=== PATIENT | male | born 1995 | race Caucasian/White ===

== ENCOUNTER 2016-07-24 15:09 | Emergency (ER) ==
[2016-07-24] MEDS ORDERED: ALBUTEROL NEB ONE (15:18)
[2016-07-24] MEDS ORDERED: DECADRON ONE (15:18)
[2016-07-24] MEDS ORDERED: SOLU-MEDROL ONE (15:20)
[2016-07-24] MEDS ORDERED: MAGNESIUM SULFATE 2 GM/S.W.I. 50 ML ONE (15:20)
[2016-07-24] MEDS ORDERED: MAGNESIUM SULFATE 2 GM/S.W.I. 50 ML IV ONE (15:21)
[2016-07-24] MEDS ORDERED: ATROVENT NEB INH ONE (15:21)
[2016-07-24] MEDS ORDERED: ALBUTEROL NEB INH ONE (15:21)
[2016-07-24] MEDS ORDERED: DECADRON MISC ONE (15:21)
[2016-07-24] MEDS ORDERED: SOLU-MEDROL IV ONE (15:21)
--- NOTE | 2016-07-24 15:26 | PROVIDER DOCUMENTATION ---
Addendum entered and electronically signed by Araseli Escobedo Scribe 07/24/16 17:48: Additional Progress - ADDITIONAL PLAN OF CARE/RESULTS Additional Progress/Plan/Lab Results: Vital Signs - 24 hr 07/24/16 07/24/16 07/24/16 15:11 15:29 15:51 Temperature 98 F Pulse Rate 110 H 97 H 91 H Respiratory 40 H 26 H 24 Rate Blood Pressure 117/75 O2 Sat by Pulse 91 L 99 Oximetry 07/24/16 07/24/16 16:16 17:16 Temperature Pulse Rate 84 98 H Respiratory 20 20 Rate Blood Pressure 116/63 100/66 O2 Sat by Pulse 98 94 L Oximetry Orders Category Date Time Status Saline Loc NOW Care 07/24/16 15:21 Active CHEST-PORTABLE [RAD] Stat Exams 07/24/16 15:21 Completed ABG [RESP] Routine Lab 07/24/16 17:45 Ordered BASIC METABOLIC PANEL [CHEM] Stat Lab 07/24/16 15:25 Completed CBC WITH DIFF [HEME] Stat Lab 07/24/16 15:25 Completed Albuterol Neb Med 07/24/16 15:21 Discontinued 10 mg INH NOW ONE Albuterol [Albuterol Neb] Med 07/24/16 15:18 Discontinued 10 mg .ROUTE .STK-MED ONE Dexamethasone [Decadron] Med 07/24/16 15:18 Discontinued 4 mg .ROUTE .STK-MED ONE Dexamethasone [Decadron] Med 07/24/16 15:21 Discontinued 4 mg MISC NOW ONE Ipratropium [place] Neb [Atrovent Neb] Med 07/24/16 15:21 Discontinued 0.5 mg INH NOW ONE Magnesium Sulfate 2 gm/S.w.i. [Magnesium Sulfate 2 gm/S Med 07/24/16 15:20 Discontinued .w.i] 50 ml .ROUTE As Directed Magnesium Sulfate 2 gm/S.w.i. [Magnesium Sulfate 2 gm/S Med 07/24/16 15:21 Discontinued .w.i] 50 ml IV NOW Methylprednisolone Sod Succ [Solu-Medrol] Med 07/24/16 15:20 Discontinued 125 mg .ROUTE .STK-MED ONE Methylprednisolone Sod Succ [Solu-Medrol] Med 07/24/16 15:21 Discontinued 125 mg IV NOW ONE Aerosol Treatments Routine Oth 07/24/16 15:22 Completed Aerosol Treatments Stat Oth 07/24/16 15:22 Completed Laboratory Tests 07/24/16 07/24/16 15:25 15:25 WBC 7.66 RBC 5.64 Hgb 16.8 Hct 47.0 MCV 83.3 MCH 29.8 MCHC 35.7 RDW Std Deviation 12.7 Plt Count 241 MPV 11.4 H Immature Gran % (Auto) 0.1 Neut % (Auto) 39.9 L Lymph % (Auto) 41.0 [place] % (Auto) 13.2 H Eos % (Auto) 5.4 Baso % (Auto) 0.4 Immature Gran # (Auto) 0.01 Neut # (Auto) 3.06 Lymph # (Auto) 3.14 [place] # (Auto) 1.01 H Eos # (Auto) 0.41 Baso # (Auto) 0.03 Sodium 139 Potassium 3.9 Chloride 103 Carbon Dioxide 25 Anion Gap 11 BUN 11 Creatinine 0.8 Estimated GFR/1.73 m2 > 60 BUN/Creatinine Ratio 14 Glucose 89 Calculated Osmolality 276 Calcium 9.7 - ADDITIONAL REASSESSMENT Time Reassessed: 16:45 Status: worsening (Pt's O2 sats on room air went down to 91, so ABG and additional monitoring is needed before discharge.) Original Note: HPI-Respiratory General - General Source: patient - History of Present Illness-Resp Severity in ED: reports: moderate, severe Onset/Duration: reports: abrupt, other (began yesterday, worsened today) Timing: reports: still present Context: reports: out of meds Cough Quality/Degree: reports: moderate, severe, dry cough Episode Frequency: frequent episodes Current Respiratory Medication Therapy: Initiated A/A nebulizer, Initiated albuterol Modifying Factors: improves with: albuterol nebulizer. worse with: coughing Associated Symptoms: reports: heart racing, hyperventilating, shortness of breath, wheezing Similar Symptoms Previously?: Yes (hx asthma) <Araseli Escobedo - Last Filed: 07/24/16 16:46> <Ad Marie - Last Filed: 07/24/16 17:24> - General Chief Complaint: Asthma Attack Stated Complaint: SOB Time Seen by Provider: 07/24/16 15:16 Allergies/Adverse Reactions: Patient Allergies Allergy/AdvReac Type Severity Reaction Status Date / Time No Known Allergies Allergy Verified 07/07/16 16:49 Home Medications: Home Medication List Medication Instructions Recorded Confirmed Last Taken Type Albuterol [Albuterol Neb] 2.5 mg INH Q4H PRN PRN #20 neb 07/07/16 Unknown Rx Prednisone 20 mg PO DAILY #12 tablet 07/07/16 Unknown Rx Albuterol Sulfate Inhaler 2 puff INH Q4H PRN PRN #1 inhaler 07/24/16 Unknown Rx [Ventolin Hfa] Albuterol [Albuterol Neb] 2.5 mg INH Q4H PRN PRN #30 neb 07/24/16 Unknown Rx Ipratropium [place] Neb [Atrovent 0.5 mg INH RTQ4H PRN #30 neb 07/24/16 Unknown Rx Neb] Methylprednisolone [Medrol Dosepak] 4 mg PO DIRECTED #1 package 07/24/16 Unknown Rx - History of Present Illness-Resp Nature of Presenting Problem: 21 yo WM presents to ED with cc of acute asthma attack. Pt reports history of severe asthma, treated with albuterol. Pt has some difficulty talking due to respiratory distress, but he is alert and oriented x 3, and he is able to give short answers. Pt denies any other medical hx. Pt denies any toxic habits. Upon arrival to ED, pt is moderately distressed. (Araseli Escobedo) Review of Systems - Adult - REVIEW OF SYSTEMS - ADULT ROS:: limited per condition (Pt had difficulty talking due to respiratory distress but was alert and oriented and able to answer with short answers) Constitutional: reports: no symptoms reported. denies: chills, fever Eyes: reports: no symptoms reported. denies: blurred vision, double vision Ears, Nose, Mouth & Throat: reports: no symptoms reported. denies: ear pain, sinus problem Cardiovascular: reports: no symptoms reported. denies: edema, heart murmur Respiratory: reports: shortness of breath, wheezing, other (accute asthma attack , severe) Gastrointestinal: reports: no symptoms reported. denies: frequent heartburn, nausea Genitourinary: reports: no symptoms reported. denies: dysuria, flank pain Musculoskeletal: reports: no symptoms reported. denies: bone pain, joint pain Integumentary: reports: no symptoms reported. denies: hives, itching Neurological: reports: no symptoms reported. denies: dizziness/vertigo, paresthesia Psychiatric: reports: no symptoms reported. denies: alcohol/drug dependence, panic attacks Endocrine: reports: no symptoms reported. denies: cold intolerance, heat intolerance Hematologic/Lymphatic: reports: no symptoms reported. denies: blood clots, low blood count Allergic/Immunologic: reports: no symptoms reported. denies: allergic reactions , allergic rhinitis All Other Systems: Reviewed and Negative <Araseli Escobedo - Last Filed: 07/24/16 16:46> Past History - Adult - PAST MEDICAL HISTORY-ADULT Review of Records: reports: Old Records Reviewed, Nursing Assessment Review, Medications Reviewed Respiratory: reports: asthma - PRIOR SURGERIES/PROCEDURES Surgical/Procedure History: reports: reviewed, not pertinent - IMMUNIZATION STATUS Childhood Immunizations: See Nurse Assessment Flu Vaccine: See Nurse Assessment - FAMILY HISTORY Family History: reviewed, not pertinent <Araseli Escobedo - Last Filed: 07/24/16 16:46> Physical Exam-General - PHYSICAL EXAM-ADULT Initial Vital Signs Reviewed: Yes - CONSTITUTIONAL General Appearance: alert, moderate distress - EYES Eyes: PERRL/EOMI, pink conjunctivae - HEAD, EARS, NOSE, MOUTH & THROAT HENMT: normocephalic/atraumatic, moist mucous membranes - NECK Neck: full range of motion, supple - RESPIRATORY Respiratory: respiratory distress, wheezing, increased rate - CARDIOVASCULAR Cardiovascular: tachycardia - GASTROINTESTINAL (ABDOMEN) Abdominal Exam: non tender, soft - LYMPHATIC Lymphatic: no adenopathy - MUSCULOSKELETAL Back Exam: normal inspection, no vertebral tenderness Extremity: normal range of motion, non-tender, normal gait - SKIN Integumentary: normal color, normal turgor, warm/dry - NEUROLOGIC Neurologic: grossly normal, no motor/sensory deficits - PSYCHIATRIC Psych/Mental Status: normal mood/affect, normal thought content, normal thought process, oriented x 3 <Araseli Escobedo - Last Filed: 07/24/16 16:46> Progress - REASSESSMENT Reassessment #1 Time Reassessed: 16:00 Status: improving Reassessment Comment: Pt sleeping but rousable. Respiratory distress resolved, bilateral wheeze Reassessment #2 Time Reassessed: 16:40 Status: improving Reassessment Comment: Pt wheezing resolved - XRAY 1 XRAY Study: Chest Impression: Normal XRAY Interpretation: NAD <Araseli Escobedo - Last Filed: 07/24/16 16:46> <Ad Marie - Last Filed: 07/24/16 17:24> - PLAN OF CARE/RESULTS Progress/Plan/Lab Results: Laboratory Results - last 24 hr 07/24/16 07/24/16 15:25 15:25 WBC 7.66 RBC 5.64 Hgb 16.8 Hct 47.0 MCV 83.3 MCH 29.8 MCHC 35.7 RDW Std Deviation 12.7 Plt Count 241 MPV 11.4 H Immature Gran % (Auto) 0.1 Neut % (Auto) 39.9 L Lymph % (Auto) 41.0 [place] % (Auto) 13.2 H Eos % (Auto) 5.4 Baso % (Auto) 0.4 Immature Gran # (Auto) 0.01 Neut # (Auto) 3.06 Lymph # (Auto) 3.14 [place] # (Auto) 1.01 H Eos # (Auto) 0.41 Baso # (Auto) 0.03 Sodium 139 Potassium 3.9 Chloride 103 Carbon Dioxide 25 Anion Gap 11 BUN 11 Creatinine 0.8 Estimated GFR/1.73 m2 > 60 BUN/Creatinine Ratio 14 Glucose 89 Calculated Osmolality 276 Calcium 9.7 Vital Signs Temp Pulse Resp BP Pulse Ox 07/24/16 17:16 98 H 20 100/66 94 L 07/24/16 16:16 84 20 116/63 98 07/24/16 15:51 91 H 24 117/75 99 07/24/16 15:29 97 H 26 H 07/24/16 15:11 98 F 110 H 40 H 91 L No Known Allergies Allergy (Verified 07/07/16 16:49) Albuterol [Albuterol Neb] 2.5 mg INH Q4H PRN PRN #20 neb 07/07/16 Prednisone 20 mg PO DAILY #12 tablet 07/07/16 Albuterol Sulfate Inhaler [Ventolin Hfa] 2 puff INH Q4H PRN PRN #1 inhaler 07/24 Albuterol [Albuterol Neb] 2.5 mg INH Q4H PRN PRN #30 neb 07/24/16 Ipratropium [place] Neb [Atrovent Neb] 0.5 mg INH RTQ4H PRN #30 neb 07/24/16 Methylprednisolone [Medrol Dosepak] 4 mg PO DIRECTED #1 package 07/24/16 Laboratory 07/24/16 07/24/16 15:25 15:25 WBC 7.66 RBC 5.64 Hgb 16.8 Hct 47.0 MCV 83.3 MCH 29.8 MCHC 35.7 RDW Std Deviation 12.7 Plt Count 241 MPV 11.4 H Immature Gran % (Auto) 0.1 Neut % (Auto) 39.9 L Lymph % (Auto) 41.0 [place] % (Auto) 13.2 H Eos % (Auto) 5.4 Baso % (Auto) 0.4 Immature Gran # (Auto) 0.01 Neut # (Auto) 3.06 Lymph # (Auto) 3.14 [place] # (Auto) 1.01 H Eos # (Auto) 0.41 Baso # (Auto) 0.03 Sodium 139 Potassium 3.9 Chloride 103 Carbon Dioxide 25 Anion Gap 11 BUN 11 Creatinine 0.8 Estimated GFR/1.73 m2 > 60 BUN/Creatinine Ratio 14 Glucose 89 Calculated Osmolality 276 Calcium 9.7 Orders Category Date Time Status Saline Loc NOW Care 07/24/16 15:21 Active CHEST-PORTABLE [RAD] Stat Exams 07/24/16 15:21 Completed BASIC METABOLIC PANEL [CHEM] Stat Lab 07/24/16 15:25 Completed CBC WITH DIFF [HEME] Stat Lab 07/24/16 15:25 Completed Albuterol Neb Med 07/24/16 15:21 Discontinued 10 mg INH NOW ONE Albuterol [Albuterol Neb] Med 07/24/16 15:18 Discontinued 10 mg .ROUTE .STK-MED ONE Dexamethasone [Decadron] Med 07/24/16 15:18 Discontinued 4 mg .ROUTE .STK-MED ONE Dexamethasone [Decadron] Med 07/24/16 15:21 Discontinued 4 mg MISC NOW ONE Ipratropium [place] Neb [Atrovent Neb] Med 07/24/16 15:21 Discontinued 0.5 mg INH NOW ONE Magnesium Sulfate 2 gm/S.w.i. [Magnesium Sulfate 2 gm/S Med 07/24/16 15:20 Discontinued .w.i] 50 ml .ROUTE As Directed Magnesium Sulfate 2 gm/S.w.i. [Magnesium Sulfate 2 gm/S Med 07/24/16 15:21 Discontinued .w.i] 50 ml IV NOW Methylprednisolone Sod Succ [Solu-Medrol] Med 07/24/16 15:20 Discontinued 125 mg .ROUTE .STK-MED ONE Methylprednisolone Sod Succ [Solu-Medrol] Med 07/24/16 15:21 Discontinued 125 mg IV NOW ONE Aerosol Treatments Routine Oth 07/24/16 15:22 Completed Aerosol Treatments Stat Oth 07/24/16 15:22 Completed (Ad Marie) Departure <Araseli Escobedo - Last Filed: 07/24/16 16:46> - Departure Time of Disposition Order: 17:23 Certified Medical Emergency: Emergent <Ad Marie - Last Filed: 07/24/16 17:24> - Departure DIAGNOSIS: Asthma exacerbation Disposition: HOME 01 Condition: Stable Additional Instructions: Follow up with regular MD in 2-3 days. Return to ER if your symptoms worsen. Prescriptions: Albuterol [Albuterol Neb] 2.5 mg INH Q4H PRN PRN #30 neb PRN Reason: Wheezing Ipratropium [place] Neb [Atrovent Neb] 0.5 mg INH RTQ4H PRN #30 neb PRN Reason: Wheezing Methylprednisolone [Medrol Dosepak] 4 mg PO DIRECTED #1 package Albuterol Sulfate Inhaler [Ventolin Hfa] 2 puff INH Q4H PRN PRN #1 inhaler PRN Reason: Wheezing Referrals: None,PCP [Primary Care Provider] - Attestation - Scribe Verification/Attestation Scribe:: Araseli Escobedo Acting as Scribe for:: Ad Marie Scribe documention review:: This chart was documented by a scribe and accurately reflects the service the provider performed and the decisions made by the provider. - Physician/ OLLIE Attestation Patient care was provided by Advanced Practice Provider:: No <Araseli Escobedo - Last Filed: 07/24/16 16:46> Physician Attestation
[2016-07-24 15:33] LABS: MANUAL DIFF NEEDED? NO
[2016-07-24 15:36] LABS: BASO% 0.4 % (0.0-0.8); EOS# 0.41 X1000 (0.0-0.7); EOS% 5.4 % (0.0-10.0); HEMOGLOBIN 16.8 g/dL (14.0-18.0); IMM GRAN# 0.01 X1000 (0.0-0.04); IMM GRAN% 0.1 % (0.0-0.5); LYMPH# 3.14 X1000 (1.2-3.4); MCH 29.8 PG (27-31); MCHC 35.7 g/dL (33-37); MCV 83.3 FL (81-99); MONO# 1.01 X1000 (0.11-0.59); MONO% 13.2 % (1.7-9.3); MPV 11.4 FL (7.4-10.4); NEUT% 39.9 % (42.2-75.2); PLT 241 X1000 (130-400); RBC 5.64 XMIL (4.7-6.1)
[2016-07-24 15:57] LABS: AGAP 11; BUN 11 mg/dL (8-22); CALCIUM 9.7 mg/dL (8.8-10.2); CHLORIDE 103 mmol/L (98-107); COSMO 276; POTASSIUM 3.9 mmol/L (3.5-5.1); SODIUM 139 mmol/L (136-145); TCO2 25 mmol/L (25-35)
--- NOTE | 2016-07-24 16:12 | Diag Imaging Result Document ---
PROCEDURE NAME: CHEST-PORTABLE - 07/24/2016 PORTABLE CHEST X-RAY: COMPARISON: 07/07/2016. FINDINGS: There are stable scattered calcified granulomas bilaterally mostly in the upper lobes. No focal infiltrates, pneumothorax, or pleural effusion. Heart size is normal. IMPRESSION: No acute disease or change from prior.
[2016-07-24 18:37] VITALS: BP 104/86
== END 2016-07-24 18:45 | disposition home or self-care (01) ==
LOC: P.ED 15:09
DX: J45.901 Unspecified asthma with (acute) exacerbation (principal); R06.02 Shortness of breath; R06.2 Wheezing; R06.4 Hyperventilation; R00.0 Tachycardia, unspecified
CPT/HCPCS: 71010; 80048; 85025; 94640; 96365; 96375; J1100; J2930; J3475

== ENCOUNTER 2019-01-22 20:17 | Observation (INO) ==
[2019-01-22] MEDS ORDERED: XYLOCAINE-MPF 1% INJ ONE (20:51)
--- NOTE | 2019-01-22 20:56 | PROVIDER DOCUMENTATION ---
HPI-Rash/Wound/ReCheck - General Chief Complaint: Abscess Stated Complaint: CELLULITIS (R) ARM Time Seen by Provider: 01/22/19 20:40 Source: patient Allergies/Adverse Reactions: Allergies Allergy/AdvReac Type Severity Reaction Status Date / Time No Known Allergies Allergy Verified 01/22/19 20:35 Home Medications: Home Medication List Medication Instructions Recorded Confirmed Last Taken Type Montelukast Sodium [Singulair] 10 mg PO DAILY 03/19/17 01/21/18 05/13/17 History Lisdexamfetamine Dimesylate 50 mg PO QAM 01/21/18 01/21/18 Unknown History [Vyvanse] Buprenorphine/Naloxone S.l 1 ea SL DAILY PRN #2 film 01/26/18 Unknown Rx [Suboxone 2 mg/0.5 mg Film] Buprenorphine/Naloxone S.l 1 each SL DAILY film 01/26/18 Unknown Rx [Suboxone 2 mg/0.5 mg Film] - History of Present Illness-Dermatology Nature of Presenting Problem: 23yom present to ER with c/o abscess to R arm. Pt reports IV drug use to [facility] area 1 week ago. Denies fever. Pt went to an urgent care 2 days ago and was put on medrol dose pack, bactrim, and clindamycin. Pt states it continues to get bigger. denies fever. Pt nontoxic. Location: reports: upper extremity (R arm) Quality: reports: painful Onset/Duration: reports: 6 days ago Context/Associated Symptoms: reports: abscess Review of Systems - Adult - REVIEW OF SYSTEMS - ADULT Constitutional: reports: no symptoms reported. denies: chills, fever Eyes: reports: no symptoms reported Ears, Nose, Mouth & Throat: reports: no symptoms reported Cardiovascular: reports: no symptoms reported. denies: chest pain Respiratory: reports: no symptoms reported. denies: shortness of breath Gastrointestinal: reports: no symptoms reported. denies: nausea, vomiting Genitourinary: reports: no symptoms reported Musculoskeletal: reports: see HPI, other (R arm pain, swelling, redness) Integumentary: reports: no symptoms reported Neurological: reports: no symptoms reported Psychiatric: reports: no symptoms reported Endocrine: reports: no symptoms reported Hematologic/Lymphatic: reports: no symptoms reported Allergic/Immunologic: reports: no symptoms reported All Other Systems: Reviewed and Negative Past History - Adult - PAST MEDICAL HISTORY-ADULT Review of Records: reports: Old Records Reviewed, Nursing Assessment Review, Medications Reviewed, Social history reviewed & non-contributory. Major Childhood Illnesses: reports: denies history Cardiovascular: reports: denies history Respiratory: reports: asthma Gastrointestinal: reports: denies history Obstetrical/Gynecological: reports: denies history Genitourinary: reports: denies history Musculoskeletal: reports: denies history Neurological: reports: denies history Psychiatric: reports: denies history Endocrine/Immune: reports: denies history Other Conditions: reports: denies history - PRIOR SURGERIES/PROCEDURES Surgical/Procedure History: reports: reviewed, not pertinent - IMMUNIZATION STATUS Childhood Immunizations: See Nurse Assessment Flu Vaccine: See Nurse Assessment - FAMILY HISTORY Family History: reviewed, not pertinent - SOCIAL HISTORY Smoking: cigarettes Provider spent 3-5 mins advising pt. on dangers of tobacco.: Discussed manners to quit use, and f/u contacts for add'l counseling. Substance Use: amphetamines Physical Exam-General - PHYSICAL EXAM-ADULT Initial Vital Signs Reviewed: Yes - CONSTITUTIONAL General Appearance: alert, no apparent distress - EYES Eyes: pink conjunctivae - HEAD, EARS, NOSE, MOUTH & THROAT HENMT: moist mucous membranes, normal ENT inspection. negative: angioedema - NECK Neck: full range of motion, supple, normal inspection - RESPIRATORY Respiratory: lungs clear, normal breath sounds, no respiratory distress, no accessory muscle use - CARDIOVASCULAR Cardiovascular: normal peripheral pulses, regular rate, rhythm - GASTROINTESTINAL (ABDOMEN) Abdominal Exam: normal bowel sounds, non tender, soft - LYMPHATIC Lymphatic: no adenopathy - MUSCULOSKELETAL Back Exam: normal inspection Extremity: normal range of motion, normal gait, normal capillary refill, erythema (R ACF extending into forearm), swelling (R ACF area extending into forearm), tenderness (R ACF area). negative: deformity, pulse deficit Peripheral Pulses: radial (R): 2+, radial (L): 2+ - SKIN Integumentary: normal color, warm/dry. negative: cyanosis, jaundice - NEUROLOGIC Neurologic: grossly normal - PSYCHIATRIC Psych/Mental Status: normal mood/affect, normal thought content, normal thought process, oriented x 3 Progress - PLAN OF CARE/RESULTS Progress/Plan/Lab Results: Vital Signs - 8 hr 01/22/19 20:33 Temperature 97.9 F Pulse Rate 104 H Respiratory Rate 16 Blood Pressure 118/83 O2 Sat by Pulse Oximetry 99 01/22/19 22:18 Gram Stain - Final Arm - Right Orders Category Date Time Status I and D Set up DIRECTED Care 01/22/19 20:51 Active Saline Loc NOW Care 01/22/19 20:57 Active BLOOD CULTURE [BLDCUL] Stat Lab 01/22/19 23:02 Uncollected CBC WITH DIFF [HEME] Stat Lab 01/22/19 20:57 Uncollected COMPREHENSIVE METABOLIC PANEL [CHEM] Stat Lab 01/22/19 23:02 Uncollected WOUND CULTURE INC GRAM STAIN [RM] Routine Lab 01/22/19 22:18 Results Lidocaine 1% Pf [Xylocaine-Mpf 1%] Med 01/22/19 20:51 Discontinued 10 ml INJ NOW ONE Piperacillin/Tazobactam [Zosyn] 4.5 gm Med 01/22/19 23:36 Active 0.9% Sodium Chloride Inj [Ns] 100 ml IV NOW Vancomycin 1 gm/Ns Med 01/22/19 23:36 Active 1 gm in 250 ml IV NOW - REASSESSMENT Reassessment #1 Time Reassessed: 22:57 (discussed pt with Dr Rivas, suggests pt be admitted due to pt failing outpatient treatment. ) - CONSULTS/PCP/HOSPITALIST Notification #1 *Consult/PCP/Hospitalist*: Dr Rivas spoke with Dr Weaver Time Discussed: 23:49 Consult Disposition: Will see in ED, Admit Procedures - INCISION & DRAINAGE Site: R ACF area Abscess Type: Simple Prepped with: Kit Utilized, Betadine, Sterile Drapes Applied Anesthetic: 1%, Lidocaine/Xylocaine Volume of Anesthetic (ml's): 5 Blade Size: 11 Packing placed?: No Drainage: Large Amount, Purulent (odorous) Departure - Departure Date of Disposition Decision: 01/22/19 Time of Disposition Decision: 22:28 DIAGNOSIS: Abscess, IV drug abuse Disposition: ADMITTED INPATIENT 09 Certified Medical Emergency: Emergent Condition: Stable Referrals and Follow-Ups: None,PCP [Primary Care Provider] - - Critical Care Note This patient required my direct & personal management of CC.: No Attestation - Physician/ OLLIE Attestation Patient care was provided by Advanced Practice Provider:: Yes Advanced Practice Provider:: Connie Weller Advanced Practice Provider documentation review:: The Mid-level provider documentation, treatment plan and medical decision making was reviewed by the physician who agrees with all treatment and medical decision making by the MLP. The physician spent face to face time with patient:: Yes Advanced Practice Provider documentation review:: Supervising physician onsite and consulted in the evaluation and care of this patient. The physician did have a face to face encounter with the patient.
[2019-01-22] MEDS ORDERED: VANCOMYCIN 1 GM/NS 1 GM/250 ML IVPB IV ONE (23:36)
[2019-01-22] MEDS ORDERED: ZOSYN 4.5 GM in NS 100 ML IV ONE (23:36)
[2019-01-23 00:42] LABS: BASO# 0.02 X1000 (0.0-0.2); BASO% 0.2 % (0.0-0.8); EOS# 0.18 X1000 (0.0-0.7); EOS% 1.6 % (0.0-10.0); HEMATOCRIT 42.3 % (42.0-52.0); HEMOGLOBIN 14.4 g/dL (14.0-18.0); LYMPH# 1.53 X1000 (1.2-3.4); LYMPH% 13.5 % (20.5-51.1); MCH 28.6 PG (27-31); MCV 83.9 FL (81-99); MONO# 1.26 X1000 (0.11-0.59); MONO% 11.1 % (1.7-9.3); MPV 12.1 FL (7.4-10.4); NEUT# 8.38 X1000 (1.4-6.5); NEUT% 73.6 % (42.2-75.2); PLT 247 X1000 (130-400); RBC 5.04 XMIL (4.7-6.1); WBC 11.37 X1000 (4.8-10.8)
[2019-01-23 01:16] LABS: AGAP 10; ALB/GLOB RATIO 1.2; ALBUMIN 3.3 g/dL (3.5-5.0); ALKALINE PHOSPHATASE 86 U/L (32-122); BUN 9 mg/dL (8-22); CALCIUM 8.2 mg/dL (8.8-10.2); CHLORIDE 104 mmol/L (98-107); COSMO 268; CREATININE 0.9 mg/dL (0.7-1.2); ESTIMATED GFR > 60; GLUCOSE 92 mg/dL (70-104); GOT 58 U/L (10-34); GPT 69 U/L (10-44); POTASSIUM 3.9 mmol/L (3.5-5.1); SODIUM 135 mmol/L (136-145); TCO2 21 mmol/L (25-35); TOTAL BILIRUBIN 0.43 mg/dL (0.20-1.00)
[2019-01-23] MEDS ORDERED: ZOFRAN IV PRN (02:02)
[2019-01-23] MEDS ORDERED: TYLENOL PO PRN (02:02)
[2019-01-23] MEDS ORDERED: VANCOMYCIN IV PER PHARMACY MISC SCH (02:02)
[2019-01-23] MEDS ORDERED: VANCOMYCIN 1,200 MG in NS 250 ML IV ONE (03:30)
[2019-01-23] MEDS: NS 1,000 ML IV SCH ×2 (03:41→16:23)
[2019-01-23] MEDS: ZOSYN 3.375 GM in NS 50 ML IV SCH ×4 (06:22→23:58)
--- NOTE | 2019-01-23 09:26 | HISTORY AND PHYSICAL ---
CHIEF COMPLAINT: Right arm abscess. HISTORY OF PRESENT ILLNESS: Mr. Dejesus is a 23-year-old male with medical history of asthma and IV drug use. He reportedly this last Thursday took crystal meth, I believe, into his right AC. He missed the vein and injected into the subcutaneous tissue. An abscess began to form. He went to a clinic. He was given antibiotics. It continued to grow in size, so he came to the emergency room. They I and D'd the area and felt that he needed to come in for IV antibiotics. Blood cultures and wound cultures are pending. He will be admitted for further evaluation and treatment. PAST MEDICAL HISTORY: Asthma and IV drug use. PAST SURGICAL HISTORY: Denies. SOCIAL HISTORY: Lives with friends. Rare alcohol. No tobacco. Occasional IV drug use. FAMILY HISTORY: Denies any family history. REVIEW OF SYSTEMS: A 14-point review of systems was conducted with the patient. He has pain in the right AC. He denies any other type of symptoms. All other systems were reviewed and found to be negative. PHYSICAL EXAMINATION: VITAL SIGNS: Temperature 97.8, pulse 85, respirations 18, blood pressure 127/82, oxygen saturation is 100% on room air. GENERAL: A pleasant 23-year-old male lying on the ER stretcher. Answered all questions appropriately. He is alert and oriented x3. HEENT: Head is atraumatic and normocephalic. Pupils are equal, round and reactive to light. Extraocular eye movements intact. Sclerae anicteric. Conjunctivae are pink. Oral mucosa is moist. NECK: Supple. No JVD. No thyromegaly. Trachea is midline. No cervical lymphadenopathy. CARDIAC: S1 and S2 appreciated. No murmurs, gallops or rubs. LUNGS: Expiratory and inspiratory wheezing throughout the lung soler. No rhonchi or rales. Symmetric rise and fall with respirations. ABDOMEN: Soft, nondistended and nontender. Bowel sounds present in all 4 quadrants and normoactive. No pulsatile mass. No organomegaly. EXTREMITIES: No cyanosis, clubbing or edema. INTEGUMENTARY: Right antecubital abscess which has been I and D'd noted with erythema and mild induration around the area. NEUROLOGICAL: Alert and oriented x3. Cranial nerves II through XII grossly intact. GENITOURINARY: No bladder distention. The patient voids. Otherwise deferred. DIAGNOSTIC DATA: WBC is 11.37, hemoglobin 14.4, hematocrit 42.3, platelet count 247. Sodium is 135, potassium 3.9, chloride 104, carbon dioxide 21, BUN is 9, creatinine 0.9, glucose 10, AST is 58, ALT is 69. ASSESSMENT AND PLAN: 1. Right antecubital abscess with cellulitis. We will start on vancomycin and Zosyn. Blood cultures and wound culture are pending. 2. Asthma. We will give DuoNebs. 3. Leukocytosis secondary to number 1. 4. Transaminitis. Recommend followup. This could be transient. 5. IV Drug use. Aware. Further recommendations based on the patient's clinical course. Dictated by JUDIE Adkins for Juan Pablo Weaver MD I have performed a face to face diagnostic evaluation. Labs/ Xrays- reviewed. Exam- chest - clear, Ext- Rt arm abscess. A/P- Rt arm abscess/cellulitis- Admit, IV ABX, wound culture. pain control. Dr. Weaver cc: JUDIE Adkins MD [facility]
--- NOTE | 2019-01-23 13:32 | PROGRESS NOTE ---
DATE: 01/23/2019 SUBJECTIVE: The patient has no primary care physician. He came in with right arm abscess. Mr. Dejesus is 23 year old with medical history of asthma, IV drug use. Reportedly last Thursday, he took crystal meth, I believe into his right AC. He missed the vein and injected it into the subcutaneous tissue. Abscess began to form. He went to the clinic, was given antibiotics. It continued to grow in size. He came to the emergency room. They did an I and D and felt he needed to come in for some IV antibiotics. We will wait on cultures. History of asthma and IV drug use. OBJECTIVE: General: Today, he was sleeping and resting pretty comfortably. Vital signs: Temperature 98.1 degrees, pulse 67 respirations 20, blood pressure 143/90. HEENT: Pupils are equal and round. Lungs: Clear in all lung soler. Cardiovascular: Regular rhythm and rate without murmur or S3. Abdomen: Soft. Skin: Warm and dry. Urine output: 1600 mL. ASSESSMENT AND PLAN: 1. Right antecubital abscess with cellulitis. He is on vancomycin and Zosyn. Cultures are pending. 2. Asthma, on DuoNebs. 3. Leukocytosis which is improving. 4. Transaminitis which is mild. 5. Looking over orders, I do not see any change at this point. cc: Jorge Mills MD
[2019-01-23] MEDS: VANCOMYCIN 1,800 MG in NS 250 ML IV SCH (16:23)
[2019-01-24] MEDS: VANCOMYCIN 1,800 MG in NS 250 ML IV SCH ×2 (02:11→16:02)
[2019-01-24] MEDS: ZOSYN 3.375 GM in NS 50 ML IV SCH ×3 (06:08→19:14)
[2019-01-24] MEDS: NS 1,000 ML IV SCH ×2 (08:34→19:14)
--- NOTE | 2019-01-24 10:38 | PROGRESS NOTE ---
DATE: 01/24/2019 SUBJECTIVE: Mr. Dejesus is doing better. I unwrapped his right arm and the swelling and drainage is markedly down, much less tender. Remains afebrile. OBJECTIVE: Temperature 98.1 degrees, pulse 69, respirations 16, blood pressure 125/71. Pupils are equal round. Lungs are clear in all lung soler. Cardiovascular regular rate without murmur or S3. Urine output is 2600 mL. ASSESSMENT AND PLAN: 1. Right antecubital abscess/cellulitis is doing better. Continue vancomycin and Zosyn. 2. History of asthma. He is on DuoNeb. His air exchange is good. 3. Leukocytosis which has gone down. White count has diminished. 4. Transaminitis, which is resolved. 5. IV drug use. I think he is hopefully close to getting home. Wound cultures will require market incubation. Blood cultures unremarkable. Currently, he is on vancomycin 1800 mg IV q.12 and Zosyn 3.375 g IV q.6. cc: Jorge Mills MD
[2019-01-24] MEDS: NICODERM PATCH TD SCH (22:07)
[2019-01-25] MEDS: ZOSYN 3.375 GM in NS 50 ML IV SCH ×2 (00:54→09:55)
[2019-01-25] MEDS: VANCOMYCIN 1,800 MG in NS 250 ML IV SCH (03:34)
[2019-01-25] MEDS ORDERED: VANCOMYCIN 1,600 MG in NS 250 ML IV SCH (05:00)
[2019-01-25] MEDS ORDERED: IMODIUM PO ONE (09:41)
[2019-01-25] MEDS: NS 1,000 ML IV SCH (09:55)
[2019-01-25] MEDS: NICODERM PATCH TD SCH (10:07)
[2019-01-25 11:41] VITALS: BP 122/66
[2019-01-25 12:35] LABS: BASO# 0.03 X1000 (0.0-0.2); BASO% 0.6 % (0.0-0.8); EOS# 0.31 X1000 (0.0-0.7); EOS% 6.5 % (0.0-10.0); HEMATOCRIT 47.4 % (42.0-52.0); HEMOGLOBIN 16.3 g/dL (14.0-18.0); IMM GRAN# 0.02 X1000 (0.0-0.04); IMM GRAN% 0.4 % (0.0-0.5); LYMPH# 1.54 X1000 (1.2-3.4); LYMPH% 32.3 % (20.5-51.1); MCH 28.7 PG (27-31); MCHC 34.4 g/dL (33-37); MCV 83.6 FL (81-99); MONO# 0.54 X1000 (0.11-0.59); MONO% 11.3 % (1.7-9.3); MPV 11.4 FL (7.4-10.4); NEUT# 2.33 X1000 (1.4-6.5); NEUT% 48.9 % (42.2-75.2); PLT 298 X1000 (130-400); RBC 5.67 XMIL (4.7-6.1); RDW 12.8 % (11.5-14.5); WBC 4.77 X1000 (4.8-10.8)
[2019-01-25 12:54] LABS: AGAP 11; ALB/GLOB RATIO 1.2; ALBUMIN 3.7 g/dL (3.5-5.0); ALKALINE PHOSPHATASE 84 U/L (32-122); BUN 8 mg/dL (8-22); CHLORIDE 105 mmol/L (98-107); COSMO 276; CREATININE 0.7 mg/dL (0.7-1.2); ESTIMATED GFR > 60; GLUCOSE 104 mg/dL (70-104); GOT 17 U/L (10-34); GPT 40 U/L (10-44); POTASSIUM 4.3 mmol/L (3.5-5.1); SODIUM 139 mmol/L (136-145); TCO2 23 mmol/L (25-35); TOTAL BILIRUBIN 0.45 mg/dL (0.20-1.00); TOTAL PROTEIN 6.9 g/dL (6.3-8.3)
--- NOTE | 2019-01-26 18:02 | DISCHARGE SUMMARY ---
ADMISSION DATE: 01/22/2019 DISCHARGE DATE: 01/26/2019 DISCHARGE DIAGNOSES: 1. Right antecubital abscess with cellulitis, improved. 2. Asthma, stable. 3. Transaminitis. 4. Current intravenous drug use. PROCEDURES: None. HOSPITAL COURSE: In brief, this is a 23-year-old male with a past medical history of asthma and IV drug use, who reports that last Thursday he took crystal meth in the right antecubital fossa. He missed the vein and injected into the subcutaneous tissue and an abscess began to form. He wanted to a clinic and he was given antibiotics. But unfortunately, it continued to grow in size and he decided to come to the emergency department. We started him on IV antibiotics, in this case vancomycin and Zosyn. The wound culture showed Streptococcus parasanguinis and Staphylococcus hominis. Actually in the ER he had an incision and drainage of that area. After 3 days all that area looks completely clean and no abscess noted. He has been prescribed before 10 days of Septra DS and also clindamycin, so I recommended to him to finish both medications for 10 days as it was already prescribed. The patient is being discharged in stable condition. DISCHARGE PHYSICAL EXAMINATION: Vital signs: Temperature 98.6 degrees, heart rate 62, respiratory rate 18, blood pressure 122/66, O2 saturation 99% on room air. General: This is a 23- year-old male, lying in bed, in no acute distress. Cardiovascular: S1, S2 heard. No murmurs, gallops, or rubs. Regular rate and rhythm. Respiratory: Clear bilaterally to auscultation. No work of breathing or using accessory muscles. Abdomen: Soft. Nontender to palpation. Bowel sounds present. No organomegaly. Extremities: Right antecubital area, there is no abscess noted, just mild erythema around it. Neurological: The patient is alert and oriented x3. Moves 4 extremities. DISCHARGE DISPOSITION: Home to self-care. LIST OF MEDICATIONS: We are not going to prescribe any medications because he has prescriptions for Septra DS on clindamycin for 10 days, both medication, which I recommended to continue taking them until he finishes. cc: Junior Ortiz MD
== END 2019-01-25 14:09 | disposition home or self-care (01) ==
LOC: ED 20:17 → INTOOBSV 01-23 00:42 → 3N 01-23 00:42 → SUATTDRO 01-23 00:42
PROVIDERS: ATTEND Internal Medicine